=== PATIENT | female | born 1980 | race Caucasian/White ===

== ENCOUNTER 2022-03-03 13:37 | Outpatient (CLI) | payer OTHER | END 2022-03-03 17:18 | disposition home or self-care (01) | LOC: PRENATAL 13:37 | PROVIDERS: ATTEND Obstetrics & Gynecology Maternal & Fetal Medicine | DX: O35.9XX0 Maternal care for (suspected) fetal abnormality and damage, unspecified, not applicable or unspecified (principal); O35.3XX0 Maternal care for (suspected) damage to fetus from viral disease in mother, not applicable or unspecified; O09.529 Supervision of elderly multigravida, unspecified trimester; O36.5990 Maternal care for other known or suspected poor fetal growth, unspecified trimester, not applicable or unspecified ==